=== PATIENT | female | born 1955 | race Caucasian/White ===

== ENCOUNTER 2022-09-03 11:43 | Outpatient (CLI) | payer MEDICARE, OTHER, SELFPAY ==
--- NOTE | 2022-09-03 12:06 | MM_ITS ---
WS: [id number] Bilateral screening 3D tomosynthesis digital mammogram, 09/03/2022 Clinical Data: SCREENING Comparison: 07/17/2014, 07/06/2014. Findings: The breast parenchymal pattern shows fibroglandular tissue. There are scattered calcifications in the lower inner quadrant of the right breast at the 4:00 position. There are no spiculated masses or clu stered calcifications. There are no secondary signs of carcinoma. MM/[id number] Impression: 1. Development of probable benign calcifications in lower inner quadrant of th e right breast which are not clustered and there are no masses. 2. Negative left breast unchanged. 3. Recommend annual screening mammograms. BIRADS: 2-Benign FOLLOW UP: 1 Year Follow-up The CAD toolroom checker was used.
== END 2022-09-03 11:44 | disposition home or self-care (01) ==
LOC: RAD 11:48 → MOBLMAM 12:06
PROVIDERS: Visit Provider Registered Nurse
DX: Z12.31 Encounter for screening mammogram for malignant neoplasm of breast (principal)
CPT/HCPCS: 77063; 77067

== ENCOUNTER 2024-11-30 13:22 | Outpatient (CLI) | payer MEDICARE, OTHER, SELFPAY ==
--- NOTE | 2024-11-30 13:32 | MM_ITS ---
WS: [id number] BILATERAL 3D TOMOSYNTHESIS DIGITAL DIAGNOSTIC MAMMOGRAPHY WITH CAD CLINICAL INFORMATION: LUMP IN CENTRAL PORTION OF L BREAST HISTORY: Palpable lump LEFT breast 1 month COMPARISON: 2022 TECHNIQUE: Bilateral CC, MLO, and ML views. FINDINGS: Scattered fibroglandular densities bilaterally. Palpable marker inferior LEFT breast. Small focal asymmetric density in the area of the palpable marker. Ultrasound described below. Punctate and lucent centered calcifications. Vascular calcification. ULTRASOUND BREAST LEFT TECHNIQUE: Ultrasound left breast focused area of concern. CLINICAL INFORMATION: LUMP IN CENTRAL PORTION OF L BREAST FINDINGS: Ultrasound LEFT breast area of concern at the 8 o'clock position patient directed. In the area of concern is a small hypoechoic lesion with echogenic borders. This measures 6 x 8 x 4 mm and is indeterminate. Recommend further evaluation with ultrasound-guided biopsy. MM/MM diag tomosynthesis [id number] IMPRESSION: DENSITY: There are scattered areas of fibroglandular density. BI-RADS: 4 - Suspicious Finding - Biopsy Should Be Considered. FOLLOW UP: US Guided Biopsy Recommended Recommend ultrasound-guided biopsy of the LEFT breast lesion.
== END 2024-11-30 13:23 | disposition home or self-care (01) ==
LOC: RAD 13:23
DX: R92.323 Mammographic fibroglandular density, bilateral breasts (principal); N64.89 Other specified disorders of breast; Z12.31 Encounter for screening mammogram for malignant neoplasm of breast
CPT/HCPCS: 76642; 77062; G0279

== ENCOUNTER 2024-12-13 10:19 | Outpatient (CLI) | payer MEDICARE, OTHER, SELFPAY ==
--- NOTE | 2024-12-13 10:26 | US_ITS ---
WS: [id number] ULTRASOUND-GUIDED LEFT BREAST BIOPSY HISTORY: LEFT breast mass. COMPARISON: 11/30/2024 Procedure, risks and complications are explained to the patient. Medications are reviewed. Consent is obtained. The mass in the LEFT breast is localized with ultrasound. Mass localizes to 8:00, 1 cm from the nipple. Skin is cleansed with ChloraPrep and anesthetized with 1% buffered lidocaine. Small dermatome is made. Under sterile conditions mass is biopsied with a 14-gauge Achieve needle. Multiple core biopsies are performed. Material placed in formalin and sent to pathology for review. No complications encountered. Breast tissue marker ([employer] ultrasound enhanced ribbon): Single. Patient left the radiology suite with no complications. Patient is instructed to return to [facility] or call with any concerns. US/[id number] IMPRESSION: 1. Uncomplicated core needle biopsy LEFT breast mass at 8:00. PATHOLOGY: Invasive mammary carcinoma, with lobular features, nuclear grade 1-2 . Please review the pathology report for further details. Breast prognostic pro file is pending and will be reported separately. RECOMMENDATION: Follow-up with oncology and breast surgeon.
== END 2024-12-13 10:20 | disposition home or self-care (01) ==
LOC: RAD 10:21
PROVIDERS: PCP Family Medicine
DX: D05.02 Lobular carcinoma in situ of left breast (principal)
CPT/HCPCS: 19083; 88305; 88361; 88374